=== PATIENT | female | born 1970 | race Caucasian/White ===

== ENCOUNTER 2017-08-04 08:21 | Emergency (ER) | payer MEDICAID ==
[~2017-08-04] VITALS: Ht 162.6 cm; Wt 75.3 kg
[2017-08-04 08:27] VITALS: BP 131/76
--- NOTE | 2017-08-04 08:30 | NUR ---
TO ER CHAIR D
--- NOTE | 2017-08-04 08:36 | NUR ---
47/F PRESENT TO ER C/O LEFT FOOT PAIN X 1 MONTH---DENIES INJURY, +2 PEDAL PULSE <3 SEC CAP REFILL. DENIES N/V/D; SKIN IS PINK/WARM/DRY; AAOX4 WITH EVEN AND STEADY GAIT; LUNGS CLEAR BL; HR EVEN AND REGULAR; PT DENIES ANY FEVER, CP, SOB, OR COUGH AT THIS TIME; PATIENT STATES PAIN OF 0/10 AT THIS TIME; VSS; PATIENT POSITIONED FOR COMFORT; HOB ELEVATED; BEDRAILS UP X2; BED DOWN. ER MD MADE AWARE OF PT STATUS.
--- NOTE | 2017-08-04 09:00 | NUR ---
Patient being evaluated by physician at bedside.
[2017-08-04] MEDS ORDERED: ETHYL CHLORIDE 105 ML SPR TP ONE (09:55)
[2017-08-04 10:13] VITALS: BP 121/68
== END 2017-08-04 10:13 | disposition home or self-care (01) ==
LOC: MED 08:21
DX: M67.472 Ganglion, left ankle and foot (principal); R03.0 Elevated blood-pressure reading, without diagnosis of hypertension
CPT/HCPCS: 99283

== ENCOUNTER 2017-08-11 17:24 | Emergency (ER) | payer MEDICAID ==
[~2017-08-11] VITALS: Ht 162.6 cm; Wt 74.9 kg
[2017-08-11 17:29] VITALS: BP 118/59
--- NOTE | 2017-08-11 17:33 | NUR ---
PT AMBULATES TO BED 11
--- NOTE | 2017-08-11 17:36 | NUR ---
47 YO F BIB SELF W/ C/O EXCRUCUATING 9/10 STABBING PAIN ON THE TOP OF HER LEFT FOOT. PT REPORTS SHE WAS DX W/ GANGLION CYST HERE ON 08/04/17 AND RELEASED W/ NAPROXEN WHICH SHE STATES IS NOT HELPING. PT A&O X4. GCS 15. CMS INTACT. RR EVEN AND UNLABORED AT THIS TIME. LUNG SOUNDS BILATERALLY CLEAR. PT DENIES ANY OTHER SYMPTOMS. ER MD BRUNO NOTIFIED. PT NEEDS MET. SAFETY PRECAUTIONS IN PLACE. WILL CONTINUE TO MONITOR.
[2017-08-11 18:04] VITALS: BP 118/59
--- NOTE | 2017-08-11 18:04 | NUR ---
Patient discharged with v/s stable. Written and verbal after care instructions given and explained. Patient alert, oriented and verbalized understanding of instructions. Ambulatory with steady gait on crutches. All questions addressed prior to discharge. ID band removed. Patient advised to follow up with PMD. Rx of Tramadol given. Patient educated on indication of medication including possible reaction and side effects. Opportunity to ask questions provided and answered.
== END 2017-08-11 18:04 | disposition home or self-care (01) ==
LOC: MED 17:24
DX: M67.472 Ganglion, left ankle and foot (principal)
CPT/HCPCS: 99283

== ENCOUNTER 2019-08-27 20:34 | Emergency (ER) | payer MEDICAID ==
[~2019-08-27] VITALS: Ht 165.1 cm; Wt 77.1 kg
[2019-08-27 20:41] VITALS: BP 162/99
--- NOTE | 2019-08-27 21:02 | NUR ---
49/F presents ambulatory to ED, c/o intermittent sob x1 week, cough x2days, reports cp, denies fever, temp 98.8, HR 109. reports feeling anxious. Pt awake and alert, skin normal color warm and dry, Spo 99% on RA, RR 22 even and tachypnic with no labored breathing. Lung sounds clear BL. Denies med hx or rx.
[2019-08-27] MEDS ORDERED: NACL 0.9% 1,000 ML IV ONE (21:05)
[2019-08-27] MEDS ORDERED: ONDANSETRON 4 MG/2 ML VIAL IVP ONE (21:05)
[2019-08-27] MEDS ORDERED: LIDOCAINE VISCOUS 2% 20 ML UDC PO ONE (21:05)
[2019-08-27] MEDS ORDERED: ALUMINUM HYD/MAG/SIMETHICONE 30 ML UDC PO ONE (21:05)
[2019-08-27 21:29] LABS: BASOPHILS % (AUTO) 0.8 % (0.0-2.0); EOSINOPHILS % (AUTO) 0.6 % (0.0-4.0); HEMATOCRIT 41.2 % (36-48); HEMOGLOBIN 13.7 g/dL (12.0-16.0); LYMPHOCYTES # (AUTO) 1.9 K/uL (2.5-16.5); LYMPHOCYTES % (AUTO) 31.9 % (20.5-51.1); MEAN CORPUSCULAR HEMOGLOBIN 30 pg (27-31); MEAN CORPUSCULAR HGB CONC 33 g/dL (33-37); MEAN CORPUSCULAR VOLUME 88.7 fL (80-94); MONOCYTES # (AUTO) 0.6 K/uL (0.8-1.0); MONOCYTES % (AUTO) 9.9 % (1.7-9.3); NEUTROPHILS # (AUTO) 3.3 K/uL (1.8-7.7); NEUTROPHILS % (AUTO) 56.8 % (42.2-75.2); PLATELET COUNT (AUTO) 158 K/uL (140-450); RED BLOOD CELL COUNT(AUTO) 4.65 MIL/uL (4.20-5.40); RED CELL DISTRIBUTION WIDTH 13.5 % (11.6-13.7); WHITE BLOOD COUNT (AUTO) 5.8 K/uL (4.8-10.8)
[2019-08-27 21:47] LABS: ALBUMIN 4.1 g/dL (3.4-5.0); ANION GAP 13.2 (8-16); CREATININE 0.8 mg/dL (0.6-1.3); POTASSIUM 3.2 mmol/L (3.5-5.1); TOTAL BILIRUBIN 0.6 mg/dL (0.0-1.0)
[2019-08-27] MEDS ORDERED: ALBUTEROL 2 MG/5 ML ORASYR PO ONE (21:55)
--- NOTE | 2019-08-27 22:29 | NUR ---
RT AT BEDSIDE.
[2019-08-27] MEDS ORDERED: ALBUTEROL 0.083% 2.5 MG/3 ML NEBU INH ONE (22:30)
[2019-08-27] MEDS ORDERED: ALBUTEROL HFA MDI 90 MCG/ACTUATION 8 GM INH ONE (22:30)
--- NOTE | 2019-08-27 22:50 | NUR ---
Albuterol given by RT.
--- NOTE | 2019-08-27 22:51 | NUR ---
NO CHANGES FROM PREVIOUS ASSESSMENT. PT RESTING COMFORTABLY IN BED. PT HAVING NO RESPIRATORY DISTRESS. NO LABORED BREATHING. WILL CONTINUE TO MONITOR.
[2019-08-27] MEDS ORDERED: FAMOTIDINE 20 MG TAB PO ONE (23:05)
--- NOTE | 2019-08-27 23:10 | NUR ---
PT PASS FLUID CHALLENGE ABLE TO DRINK 40 ML WATER NO COUGH OR VOMIT.
--- NOTE | 2019-08-27 23:15 | NUR ---
RT AT BEDSIDE EDUCATING PT ON SPACER.
--- NOTE | 2019-08-27 23:25 | NUR ---
NO CHANGES FROM PREVIOUS ASSESSMENT. VSS. PT GIVEN DC PAPERWORK. Patient discharged with v/s stable. Written and verbal after care instructions given and explained. Patient alert, oriented and verbalized understanding of instructions. Ambulatory with steady gait. All questions addressed prior to discharge. ID band removed. Patient advised to follow up with PMD. Rx of PEPCID AND ALBUTEROL given. Patient educated on indication of medication including possible reaction and side effects. Opportunity to ask questions provided and answered.
[2019-08-27 23:29] VITALS: BP 126/76
== END 2019-08-27 23:29 | disposition home or self-care (01) ==
LOC: MED 20:34
DX: K21.9 Gastro-esophageal reflux disease without esophagitis (principal); R06.02 Shortness of breath; M67.40 Ganglion, unspecified site
CPT/HCPCS: 36415; 71045; 80053; 83690; 84484; 85025; 85379; 93005; 94640; 99285; J2405; J7030; J7613; 99284

== ENCOUNTER 2020-04-10 13:11 | Emergency (ER) | payer MEDICAID ==
[~2020-04-10] VITALS: Ht 157.5 cm; Wt 50.8 kg
[2020-04-10 13:29] VITALS: BP 132/78
--- NOTE | 2020-04-10 14:48 | NUR ---
50 y/o female from home c/o cough and body aches x 2 days. Does not appear to be in respiratory distress. RR even and unlabored. Awake and alert. VSS medhx: IBS, Gastritis
[2020-04-10 14:54] VITALS: BP 132/78
--- NOTE | 2020-04-10 14:54 | NUR ---
Patient discharged with v/s stable. Written and verbal after care instructions given and explained. Patient alert, oriented and verbalized understanding of instructions. Ambulatory with steady gait. All questions addressed prior to discharge. ID band removed. Patient advised to follow up with PMD. Rx of Albuterol 90mcg, Zofran ODT 4mg, and Mylanta 200mg given. Patient educated on indication of medication including possible reaction and side effects. Opportunity to ask questions provided and answered.
== END 2020-04-10 14:54 | disposition home or self-care (01) ==
LOC: MED 13:11
DX: M79.10 Myalgia, unspecified site (principal); R10.13 Epigastric pain; R05 Cough; Z20.828 Contact with and (suspected) exposure to other viral communicable diseases
CPT/HCPCS: 99283; U0003